=== PATIENT | male | born 1985 | race African-American/Black ===

== ENCOUNTER 2017-01-20 19:23 | Emergency (ER) | payer OTHER ==
[~2017-01-20] VITALS: Ht 172.7 cm; Wt 95.3 kg
[2017-01-20] MEDS ORDERED: dayquil (19:29)
[2017-01-20] MEDS ORDERED: KEFL500C7 PO (20:41)
[2017-01-20] MEDS ORDERED: CEPHALEXIN 500 MG CAP PO ONE (20:45)
[2017-01-20] MEDS ORDERED: dexameTHASONE 20 MG/5 ML VIAL (J1100) IM ONE (20:45)
[2017-01-20 20:49] VITALS: BP 144/82
== END 2017-01-20 21:00 | disposition home or self-care (01) ==
LOC: M ED 20:30
DX: J02.0 Streptococcal pharyngitis (principal); J03.90 Acute tonsillitis, unspecified
CPT/HCPCS: 87880; 96372; 99282; J1100